=== PATIENT | male | born 1980 | race Caucasian/White ===

== ENCOUNTER 2016-06-23 19:29 | Emergency (ER) | payer BC ==
[~2016-06-23] VITALS: Ht 167.6 cm; Wt 66.2 kg
[2016-06-23] MEDS ORDERED: IV SET PRIMARY 1 EA INFUS.SET MC ONE (20:48)
[2016-06-23] MEDS ORDERED: IV NS 0.9% 1,000 ML ONE (20:48)
[2016-06-23] MEDS ORDERED: diphenhydrAMINE HCL 50 MG/ML VIAL ONE (20:49)
[2016-06-23] MEDS ORDERED: METOCLOPRAMIDE HCL 10 MG/2 ML VIAL ONE (20:49)
[2016-06-23] MEDS ORDERED: KETOROLAC TROMETHAMINE INJ 30 MG/ML VIAL ONE (20:49)
[2016-06-23] MEDS ORDERED: IV NS 0.9% 1,000 ML BAG IV ONE (21:00)
[2016-06-23] MEDS ORDERED: KETOROLAC TROMETHAMINE INJ 30 MG/ML VIAL IV ONE (21:00)
[2016-06-23] MEDS ORDERED: diphenhydrAMINE HCL 50 MG/ML VIAL IV ONE (21:00)
[2016-06-23] MEDS ORDERED: METOCLOPRAMIDE HCL 10 MG/2 ML VIAL IV ONE (21:00)
[2016-06-23 21:04] LABS: BASOPHILS % (AUTO) 0.3 % (0.0-2.0); DIFF TOTAL % 100 %; EOSINOPHILS % (AUTO) 0.2 % (0.0-6.0); HEMATOCRIT 39 % (39-51); HEMOGLOBIN 13.5 g/dL (13.5-17.5); LYMPHOCYTES # (AUTO) 0.9 /CMM (0.8-4.8); LYMPHOCYTES % (AUTO) 9.1 % (20.0-44.0); MEAN CORPUSCULAR HEMOGLOBIN 30 PG (26.0-33.0); MEAN CORPUSCULAR HGB CONC 35 g/dl (31.0-36.0); MEAN CORPUSCULAR VOLUME 85 fL (80-96); MONOCYTES % (AUTO) 9.7 % (2.0-12.0); NEUTROPHILS # (AUTO) 8.5 /CMM (1.8-8.9); NEUTROPHILS % (AUTO) 80.7 % (43.0-81.0); PLATELET COUNT (AUTO) 204 /CMM (150-450); RED BLOOD CELL COUNT(AUTO) 4.57 MIL/uL (4.5-6.0); WHITE BLOOD COUNT (AUTO) 10.4 K/uL (4.3-11.0)
[2016-06-23 21:09] LABS: CREATININE 0.9 mg/dL (0.6-1.3)
[2016-06-23 21:59] VITALS: BP 132/81
== END 2016-06-23 22:00 | disposition home or self-care (01) ==
LOC: ER 19:37
DX: R51 Headache (principal)
CPT/HCPCS: 36415; 70450; 80048; 85025; 96361; 96374; 96375; 99285; A4606; J1200; J1885; J2765; J7030; Z7610

== ENCOUNTER 2017-12-17 15:39 | Emergency (ER) | payer BC, OTHER ==
[~2017-12-17] VITALS: Ht 167.6 cm; Wt 66.2 kg
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
[2017-12-17] MEDS ORDERED: EPINEPHRINE (1:1000) MDV 30 MG/30ML VIAL SUBCUT ONE (16:00)
[2017-12-17] MEDS ORDERED: FAMOTIDINE (20 MG) 20 MG TABLET PO ONE (16:00)
[2017-12-17] MEDS ORDERED: diphenhydrAMINE HCL 50 MG/ML VIAL IV ONE (16:00)
[2017-12-17] MEDS ORDERED: methylPREDNISolone SOD SUCC 125 MG/2ML VIAL IV ONE (16:00)
[2017-12-17] MEDS ORDERED: IV NS 0.9% 1,000 ML BAG IV ONE (16:00)
--- NOTE | 2017-12-17 16:05 | NUR ---
NEW IV STARTED ON LAC, 18G.
[2017-12-17] MEDS ORDERED: FAMOTIDINE (20 MG) 20 MG TABLET ONE (16:07)
[2017-12-17] MEDS ORDERED: diphenhydrAMINE HCL 50 MG/ML VIAL ONE (16:07)
[2017-12-17] MEDS ORDERED: methylPREDNISolone SOD SUCC 125 MG/2ML VIAL ONE (16:07)
[2017-12-17] MEDS ORDERED: EPINEPHRINE (1:1000) 1 MG/ML AMPUL ONE (16:07)
--- NOTE | 2017-12-17 16:30 | NUR ---
PATIENT MEDICATED PER MD ORDERS.
[2017-12-17 18:57] VITALS: BP 132/71
--- NOTE | 2017-12-17 18:58 | NUR ---
IV removed. Catheter intact and site benign. Pressure and 4x4 applied to site. No bleeding noted. Patient discharged to home in stable condition. Written and verbal after care instructions given. Patient verbalizes understanding of instruction.
== END 2017-12-17 18:58 | disposition home or self-care (01) ==
LOC: ER 15:41
DX: T63.441A Toxic effect of venom of bees, accidental (unintentional), initial encounter (principal); T78.2XXA Anaphylactic shock, unspecified, initial encounter; X58.XXXA Exposure to other specified factors, initial encounter; Y92.830 Public park as the place of occurrence of the external cause
CPT/HCPCS: 96372; 96374; 96375; 99284; A4606; J0171; J1200; J2930; J7030; Z7610

== ENCOUNTER 2022-01-22 22:45 | Emergency (ER) | payer BC ==
[~2022-01-22] VITALS: Ht 167.6 cm; Wt 63.5 kg
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
[2022-01-22] MEDS ORDERED: IBUPROFEN 400 MG TABLET PO ONE (23:30)
--- NOTE | 2022-01-22 23:31 | NUR ---
XRAY AT BEDSIDE
[2022-01-22] MEDS ORDERED: IBUPROFEN 400 MG TABLET ONE (23:34)
--- NOTE | 2022-01-23 00:04 | NUR ---
Patient discharged to home in stable condition. Written and verbal after care instructions given. Patient verbalizes understanding of instruction.
[2022-01-23 00:08] VITALS: BP 123/69
== END 2022-01-23 00:11 | disposition home or self-care (01) ==
LOC: ER 22:54
DX: S33.5XXA Sprain of ligaments of lumbar spine, initial encounter (principal); S40.012A Contusion of left shoulder, initial encounter; V49.49XA Driver injured in collision with other motor vehicles in traffic accident, initial encounter; Y93.89 Activity, other specified; Y92.413 State road as the place of occurrence of the external cause; Y99.8 Other external cause status
CPT/HCPCS: 72110-TC; 73030-TC

== ENCOUNTER 2025-04-16 14:18 | Emergency (ER) | payer BC ==
[~2025-04-16] VITALS: Ht 165.1 cm; Wt 66.2 kg
[2025-04-16 14:50] VITALS: BP 118/81; TEMP 98.1
[2025-04-16] MEDS ORDERED: IBUP-1490 PO (15:43)
[2025-04-16 15:56] VITALS: O2SAT 98
== END 2025-04-16 16:15 | disposition home or self-care (01) ==
LOC: ER 14:18
DX: S93.401A Sprain of unspecified ligament of right ankle, initial encounter (principal); F10.90 Alcohol use, unspecified, uncomplicated; X50.1XXA Overexertion from prolonged static or awkward postures, initial encounter; Y93.01 Activity, walking, marching and hiking; Y92.89 Other specified places as the place of occurrence of the external cause; Y99.2 Volunteer activity; Y90.9 Presence of alcohol in blood, level not specified
CPT/HCPCS: 73610-TC